=== PATIENT | male | born 1970 | race Two or more races ===

== ENCOUNTER 2023-04-05 10:00 | Emergency (ER) | payer OTHER ==
[2023-04-05 10:22] VITALS: BP 138/90; PULSE 70; RESP 17; TEMP 98.2; BMI 31.6
[2023-04-05] MEDS ORDERED: predniSONE 20 MG TABLET (UD) PO ONE (11:39)
[2023-04-05] MEDS ORDERED: ACETAMINOPHEN 500 MG TABLET (FP) PO ONE (11:39)
[2023-04-05] MEDS ORDERED: predniSONE 20 MG TABLET (UD) ONE (11:58)
[2023-04-05] MEDS ORDERED: ACETAMINOPHEN 500 MG TABLET (FP) ONE (11:58)
== END 2023-04-05 13:05 | disposition home or self-care (01) ==
LOC: JERFT 10:00
DX: M54.50 Low back pain, unspecified (principal)
CPT/HCPCS: 72100-TC-FY; 99283-25